=== PATIENT | male | born 1970 | race Caucasian/White ===

== ENCOUNTER 2016-10-04 23:53 | Emergency (ER) | payer OTHER | END 2016-10-05 02:05 | disposition home or self-care (01) | LOC: FER 23:53 | DX: J18.9 Pneumonia, unspecified organism (principal); R10.12 Left upper quadrant pain; F17.210 Nicotine dependence, cigarettes, uncomplicated | CPT/HCPCS: 71020; 93005; J1885 ==

== ENCOUNTER 2016-10-08 17:18 | Emergency (ER) | payer OTHER ==
[2016-10-08 19:37] LABS: BASOPHIL 0.8 % (0-2); HCT 44.5 % (42.0-52.0); HGB 15.4 g/dl (13.2-18.0); LYMPHOCYTE 34.7 % (15-48); MCH 30.3 pg (25.0-31.0); MCHC 34.6 g/dL (32.0-36.0); MCV 87.4 fL (78.0-100.0); MONOCYTE 7.3 % (0-12); MPV 10.7 fL (6.0-9.5); NEUTROPHIL 54.2 % (41-80); PLT 217 K/uL (150-400); RBC 5.09 M/uL (4.70-6.00); RDW 13.8 % (11.5-14.0)
[2016-10-08 19:59] LABS: CREATININE 0.8 mg/dL (0.7-1.2); POTASSIUM 4.3 mmol/L (3.5-5.1)
== END 2016-10-08 21:02 | disposition home or self-care (01) ==
LOC: FER 17:18
PROVIDERS: Emergency Medicine
DX: J06.9 Acute upper respiratory infection, unspecified (principal); F17.210 Nicotine dependence, cigarettes, uncomplicated
CPT/HCPCS: 36415; 71020; 80048; 85025; 94640; J2930